=== PATIENT | female | born 1990 | race Caucasian/White ===

== ENCOUNTER 2024-08-26 13:12 | Emergency (ER) | payer OTHER ==
[~2024-08-26] VITALS: Ht 165.1 cm; Wt 72.6 kg
[2024-08-26] MEDS ORDERED: HYDR-4303 PO (13:55)
[2024-08-26] MEDS ORDERED: IBUP-1955 PO (13:55)
[2024-08-26] MEDS ORDERED: HYDROCODONE/APAP 5/325MG TABLET ONE (14:01)
[2024-08-26] MEDS: HYDROCODONE/APAP 5/325MG TABLET PO ONE (14:08)
[2024-08-26 14:16] VITALS: BP 123/69; TEMP 98; O2SAT 100
== END 2024-08-26 14:17 | disposition home or self-care (01) ==
LOC: ER 13:12
DX: S42.401A Unspecified fracture of lower end of right humerus, initial encounter for closed fracture (principal); W10.9XXA Fall (on) (from) unspecified stairs and steps, initial encounter; Y93.89 Activity, other specified; Y92.89 Other specified places as the place of occurrence of the external cause; Y99.8 Other external cause status